=== PATIENT | female | born 1960 | race American Indian/Alaskan Native ===

== ENCOUNTER 2017-04-09 11:06 | Emergency (ER) | payer OTHER ==
--- NOTE | 2017-04-09 13:02 | XRay Report ---
Right elbow 2 views: History: Fall, pain. Findings: No evidence of acute fracture or dislocation. Mild arthritic changes elbow joint. No joint effusion. Suspected faint calcification medial epicondyles. Impression: No evidence of acute fracture.
--- NOTE | 2017-04-09 13:03 | XRay Report ---
Right hip 3 views: History: Fall and pain. Findings: No bony or articular abnormality. No fracture dislocation or soft tissue calcification. Impression: Essentially negative right hip.
[2017-04-09] MEDS ORDERED: TORADOL IM ONE (14:44)
[2017-04-09 15:27] VITALS: BP 149/72
--- NOTE | 2017-04-09 20:28 | Emergency Department Report ---
Entered by RAPHAEL HUDDLESTON, acting as scribe for JOE GONZALEZ PA. ED Fall HPI - General Chief Complaint: Fall Stated Complaint: SLIPPED/FELL Time Seen by Provider: 04/09/17 14:21 Source: patient Mode of arrival: Ambulatory Limitations: No Limitations - History of Present Illness Initial Comments: 56 year old female with PMHx of DM presents to the ED with c/o right elbow pain and right hip pain due to a fall that occurred this morning at 10:10. Patient states she slipped and fell on a toy train in a classroom. Patient states mild pain to right elbow but denies LOC or head injury or neck pain or back pain. Patient describes pain as sore and sharp. Patient denies headache, numbness, tingling, nausea, vomiting, abd pain, SOB, or chest pain. NKDA. MCCORD Complaint: fall -: This morning (10:10) Fall From: other (slipped on a toy train in classroom) When Fall Occurred: 4-6 hours [employer] Fall Witnessed: yes, by bystander Place Fall Occurred: school Loss of Consciousness: none Prolonged Down Time?: no Symptoms Prior to Fall: none Location: buttocks, other (right elbow and right hip) Location - Extremities: Right: Elbow Severity: mild Severity scale (0 -10): 3 Quality: aching Context: tripped/slipped Associated Symptoms: denies. denies: headache, neck pain, numbness, weakness, chest paint, abdominal pain, unable to walk, lightheaded, vertigo, confusion - Related Data Previous Rx's Medication Instructions Recorded Last Taken Type Meloxicam [Mobic] 7.5 mg PO QDAY #5 tablet 04/09/17 Unknown Rx methOCARBAMOL [Robaxin TAB] 500 mg PO TID #15 tab 04/09/17 Unknown Rx Allergies Allergy/AdvReac Type Severity Reaction Status Date / Time No Known Allergies Allergy Unverified 04/09/17 11:59 ED Review of Systems Comment: All other systems reviewed and negative Constitutional: denies: chills, fever, weakness Eyes: denies: eye pain, eye discharge, vision change ENT: denies: ear pain, throat pain Respiratory: denies: cough, shortness of breath, wheezing Cardiovascular: denies: chest pain, palpitations Endocrine: no symptoms reported Gastrointestinal: denies: abdominal pain, nausea, vomiting, diarrhea Genitourinary: denies: urgency, dysuria, discharge Musculoskeletal: arthralgia. denies: back pain, joint swelling Skin: denies: rash, lesions Neurological: denies: headache, weakness, paresthesias Psychiatric: denies: anxiety, depression Hematological/Lymphatic: denies: easy bleeding, easy bruising ED Past Medical Hx - Past Medical History Hx Diabetes: Yes (NIDDM) Additional medical history: glympride - Surgical History Additional Surgical History: - Social History Smoking Status: Never Smoker Substance Use Type: None - Medications Home Medications: Home Medications Medication Instructions Recorded Confirmed Last Taken Type Meloxicam [Mobic] 7.5 mg PO QDAY #5 tablet 04/09/17 Unknown Rx methOCARBAMOL [Robaxin TAB] 500 mg PO TID #15 tab 04/09/17 Unknown Rx ED Physical Exam - General Limitations: No Limitations General appearance: alert, in no apparent distress - Head Head exam: Present: atraumatic, normocephalic - Eye Eye exam: Present: normal appearance, EOMI - ENT ENT exam: Present: mucous membranes moist - Neck Neck exam: Present: normal inspection, full ROM. Absent: tenderness - Respiratory Respiratory exam: Present: normal lung sounds bilaterally. Absent: respiratory distress, wheezes, rales, rhonchi, stridor - Cardiovascular Cardiovascular Exam: Present: regular rate, normal rhythm, normal heart sounds - GI/Abdominal GI/Abdominal exam: Present: soft, normal bowel sounds. Absent: distended, tenderness, guarding, rebound, rigid - Extremities Exam Extremities exam: Present: normal inspection, full ROM, tenderness (mild tenderness to right elbow and right hip) - Back Exam Back exam: Present: normal inspection, full ROM. Absent: tenderness - Neurological Exam Neurological exam: Present: alert, oriented X3, normal gait - Psychiatric Psychiatric exam: Present: normal affect, normal mood - Skin Skin exam: Present: warm, dry, intact, normal color. Absent: rash ED Course Vital Signs 04/09/17 04/09/17 04/09/17 11:59 14:54 15:27 Temperature 98.1 F Pulse Rate 101 H 86 Respiratory 16 16 18 Rate Blood Pressure 178/98 Blood Pressure 149/72 [Left] O2 Sat by Pulse 97 97 Oximetry ED Medical Decision Making - Radiology Data Radiology results: report reviewed XR right hip negative right hip examination XR right elbow no acute fracture/dislocation - Medical Decision Making 56 year old female presents to ED with right elbow and hip pain after fall today. patient states she was in classroom and tripped over a toy. patient denies LOC or trauma to head or neck pain. patient is stable, neurologically intact and in no acute distress. patient is ambulatory. ED Disposition Clinical Impression: Fall Qualifiers: Encounter type: initial encounter Qualified Code(s): W19.XXXA - Unspecified fall, initial encounter Disposition: TO HOME OR SELFCARE Is pt being admited?: No Does the pt Need Aspirin: No Condition: Stable Instructions: Fall Prevention (ED) Prescriptions: Meloxicam [Mobic] 7.5 mg PO QDAY #5 tablet methOCARBAMOL [Robaxin TAB] 500 mg PO TID #15 tab Referrals: PRIMARY CARE, [Primary Care Provider] - 3-5 Days Forms: Work/School Release Form(ED) This documentation as recorded by the FLAQUITO thorpe [facility],accurately reflects the service I personally performed and the decisions made by ,JOE GONZALEZ PA.
== END 2017-04-09 15:49 | disposition home or self-care (01) ==
LOC: ED 11:06
DX: M25.521 Pain in right elbow (principal); M25.551 Pain in right hip; E11.9 Type 2 diabetes mellitus without complications; W19.XXXA Unspecified fall, initial encounter; Y93.89 Activity, other specified; Y99.9 Unspecified external cause status; Y92.218 Other school as the place of occurrence of the external cause
CPT/HCPCS: 73070; 73502; 96372; 99283; J1885